=== PATIENT | female | born 1985 | race Caucasian/White ===

== ENCOUNTER 2019-02-09 21:17 | Emergency (ER) | payer OTHER ==
[~2019-02-09] VITALS: Ht 167.6 cm; Wt 65.9 kg
[~2019-02-09 21:17] MED LIST: TORADOL10 MG PO
[2019-02-09 21:25] VITALS: Ht 167.6 cm; Wt 65.9 kg
[2019-02-09] MEDS ORDERED: BUPRENORPHINE HC8 MG SL (21:27)
[2019-02-09] MEDS ORDERED: CELEXA40 MG (21:28)
[2019-02-09 22:06] LABS: ALBUMIN 4.1 g/dL (3.4-5.0); ALKALINE PHOSPHATASE 32 U/L (46-116); ALT (SGPT) 22 U/L (10-68); BILIRUBIN - TOTAL 0.29 mg/dL (0.2-1.3); CALC OSMOLALITY 281 mosm/kg (275-300); CALCIUM 8.6 mg/dL (8.5-10.1); CARBON DIOXIDE 30.2 mmol/L (21.0-32.0); CHLORIDE - SERUM 106 mmol/L (98-107); CREATININE - SERUM 0.9 mg/dL (0.6-1.3); GLUCOSE 87 mg/dL (74-106); POTASSIUM - SERUM 3.6 mmol/L (3.5-5.1); PROTEIN - SERUM 7.1 g/dL (6.4-8.2); SODIUM 141 mmol/L (136-145); UREA NITROGEN 18 mg/dL (7-18); eGFR NON AFRICAN AMERICAN 76 mL/min (90-120)
[2019-02-09 22:11] LABS: HEMATOCRIT 38.9 % (36.0-48.0); MCH 29.4 pg (26.0-34.0); MCHC 33.4 g/dL (31.0-37.0); MEAN PLATELET VOLUME 9.9 fL (7.4-10.4); PLATELET COUNT 196 10x3/uL (130-400); RBC 4.42 10x6/uL (4.00-5.40); RDW 13.1 % (11.5-14.5); WBC 5.2 10x3/uL (4.8-10.8)
[2019-02-09 22:25] LABS: APPEARANCE CLEAR (CLEAR); BILIRUBIN NEGATIVE (NEGATIVE); COLOR YELLOW (YELLOW); GLUCOSE NEGATIVE (NEGATIVE); KETONE NEGATIVE (NEGATIVE); NITRITE NEGATIVE (NEGATIVE); PROTEIN NEGATIVE (NEGATIVE); UROBILINOGEN NORMAL (NORMAL)
[2019-02-09 22:26] LABS: RED CELLS - URINE 0-5 /hpf (0-5); WHITE CELLS - URINE OCC /hpf (0-5)
[2019-02-09 22:35] LABS: EOSINOPHILS 3 % (0-7); LYMPHOCYTES 60 % (15-50); MONOCYTES 2 % (2-11); NEUTROPHILS 35 % (40-80); PLATELET ESTIMATE NORMAL
[2019-02-10 00:09] VITALS: BP 123/77
== END 2019-02-10 00:35 | disposition home or self-care (01) ==
LOC: D.ER 21:17
PROVIDERS: Family Medicine
DX: E28.2 Polycystic ovarian syndrome (principal); R10.2 Pelvic and perineal pain